=== PATIENT | female | born 1965 | race American Indian/Alaskan Native ===

== ENCOUNTER 2016-10-27 15:56 | Emergency (ER) | payer OTHER, MEDICARE ==
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
[2016-10-27] MEDS ORDERED: MOTRIN PO ONE (22:49)
[2016-10-27 23:24] VITALS: BP 131/86
== END 2016-10-27 23:25 | disposition home or self-care (01) ==
LOC: ED 15:56
DX: R51 Headache (principal); I10 Essential (primary) hypertension; F31.9 Bipolar disorder, unspecified; V49.59XA Passenger injured in collision with other motor vehicles in traffic accident, initial encounter; X58.XXXA Exposure to other specified factors, initial encounter; Y93.9 Activity, unspecified; Y92.9 Unspecified place or not applicable; Y99.9 Unspecified external cause status
CPT/HCPCS: 70450; 99284

== ENCOUNTER 2017-10-03 13:17 | Emergency (ER) | payer MEDICARE ==
[2017-10-03 13:23] VITALS: BP 109/84
== END 2017-10-03 15:15 ==
LOC: ED 13:17
DX: G43.909 Migraine, unspecified, not intractable, without status migrainosus (principal); Z53.21 Procedure and treatment not carried out due to patient leaving prior to being seen by health care provider

== ENCOUNTER 2017-10-18 13:01 | Emergency (ER) | payer MEDICARE ==
[2017-10-18 13:30] VITALS: BP 136/84
[2017-10-18 14:24] LABS: Hematocrit 37.2 % (30.3-42.9); Hemoglobin 12.3 gm/dl (10.1-14.3); Red Blood Count 3.79 M/mm3 (3.65-5.03)
[2017-10-18 14:25] LABS: Mean Platelet Volume 6.4 fl (6-12); Red Cell Distribution Width 12.4 % (13.2-15.2)
[2017-10-18 14:39] LABS: BUN/Creatinine Ratio 18; Blood Urea Nitrogen 14 mg/dL (7-17); Calcium 8.8 mg/dL (8.4-10.2); Hemolysis Index 38
[2017-10-18 14:49] LABS: Bilirubin,Urine NEG (Negative); Blood,Urine NEG (Negative); Color,Urine Yellow (Yellow); Mucus,Urine FEW /HPF; Protein,Urine <15 mg/dL mg/dL (Negative); Urobilinogen,Urine < 2.0 mg/dL (<2.0)
== END 2017-10-18 14:39 | disposition left against medical advice (07) ==
LOC: ED 13:01
DX: R42 Dizziness and giddiness (principal); I10 Essential (primary) hypertension; M19.90 Unspecified osteoarthritis, unspecified site; F31.9 Bipolar disorder, unspecified; Z90.710 Acquired absence of both cervix and uterus; Z53.21 Procedure and treatment not carried out due to patient leaving prior to being seen by health care provider
CPT/HCPCS: 36415; 80048; 81001; 85027